=== PATIENT | female | born 1960 | race Caucasian/White ===

== ENCOUNTER 2018-11-13 11:50 | Emergency (ER) | payer BC, OTHER ==
[~2018-11-13] VITALS: Ht 160 cm; Wt 99.8 kg
[2018-11-13 13:49] VITALS: BP 110/60
[2018-11-13] MEDS ORDERED: IBUPROFEN 800 MG TAB PO ONE (14:45)
== END 2018-11-13 15:04 | disposition home or self-care (01) ==
LOC: EDBD 11:50 → ER 11:56
DX: S16.1XXA Strain of muscle, fascia and tendon at neck level, initial encounter (principal); S20.212A Contusion of left front wall of thorax, initial encounter; Z88.2 Allergy status to sulfonamides; Z88.1 Allergy status to other antibiotic agents; V43.52XA Car driver injured in collision with other type car in traffic accident, initial encounter; Y93.89 Activity, other specified; Y99.8 Other external cause status; Y92.481 Parking lot as the place of occurrence of the external cause
CPT/HCPCS: 71101; 72040